=== PATIENT | male | born 1935 | race Asian ===

== ENCOUNTER 2016-10-03 07:58 | Emergency (ER) | payer MEDICARE, OTHER ==
[2016-10-03] MEDS ORDERED: ULTRAM50 M1 PO (08:20)
[2016-10-03] MEDS ORDERED: CEFDINIR300 M1 PO (08:20)
[2016-10-03] MEDS ORDERED: LISINOPRIL-HCT1 EAC1 PO (08:20)
[2016-10-03] MEDS ORDERED: BETAMETHASONE D15 G6 TP (08:21)
[2016-10-03 09:47] LABS: BASO % 0.1 % (0-2); EOS % 0.2 % (0-7); HCT-HEMATOCRIT 27.3 % (36.0-53.5); HGB-HEMOGLOBIN 9.5 gm/dl (13.5-17.0); IMMATURE GRANULOCYTES ABSOLUTE 0.02 tho/cmm (0-0.03); IMMATURE GRANULOCYTES PERCENT 0.2 % (0-0.3); LYMPH % 9.1 % (20-45); LYMPH ABSOLUTE COUNT 0.8 tho/cmm (0.8-4.5); MCH (MEAN CORPUSCULAR HGB) 31.3 pg (28.0-32.0); MCHC MEAN CORPUSCULAR HGB CONC 34.8 % (32.0-36.0); MCV (MEAN CELL VOLUME) 89.8 fl (82.0-96.0); MEAN PLATELET VOLUME 8.5 cmc (9.4-12.4); MONO % 12.4 % (0-12); MONOCYTE ABSOLUTE COUNT 1.1 tho/cmm (0.0-1.2); NEUTROPHIL ABSOLUTE COUNT 6.6 tho/cmm (1.6-8.0); NEUTROPHIL-AUTOMATED 6.6 tho/cmm (1.6-8.0); PLATELET COUNT 231 tho/cmm (150-450); RED BLOOD COUNT 3.04 mil/cmm (4.40-5.70); RED CELL DISTRIBUTION WIDTH 15.6 % (12.4-16.4); WHITE BLOOD COUNT 8.5 tho/cmm (4.0-10.0)
[2016-10-03 09:55] LABS: ANION GAP 10 mmol/L (0-20); BLOOD UREA NITROGEN 23 mg/dl (6-24); CALCIUM 8.3 mg/dl (8.5-10.5); CARBON DIOXIDE-VENOUS 29 mmol/L (22-32); CHLORIDE 93 mmol/l (96-110); CREATININE 0.93 mg/dl (0.60-1.30); GLUCOSE 103 mg/dL (70-110); POTASSIUM 3.3 mmol/L (3.7-5.1); SODIUM 129 mmol/L (135-145); eGFR VALUE FOR BLACK 89 mL/Min
[2016-10-03] MEDS ORDERED: NORCO 5-325 TA1 EACH PO (10:13)
[2016-10-03] MEDS ORDERED: PROAIR HFA8.5 GM INH (10:13)
[2017-02-22] MEDS ORDERED: KETOCONAZOLE120 M2 TP (16:41)
[2017-02-22] MEDS ORDERED: DRONABINOL2.5 M1 PO (16:42)
[2017-02-22] MEDS ORDERED: DEXAMETHASONE4 M1 PO (16:42)
[2017-02-22] MEDS ORDERED: VENTOLIN HFA18 G2 INH (16:43)
== END 2016-10-03 10:28 ==
LOC: EDMED 07:58
PROVIDERS: Emergency Medicine
DX: M84.412A Pathological fracture, left shoulder, initial encounter for fracture (principal); J40 Bronchitis, not specified as acute or chronic; C90.00 Multiple myeloma not having achieved remission; D64.9 Anemia, unspecified